=== PATIENT | female | born 1970 | race African-American/Black ===

== ENCOUNTER → 2016-06-12 | Outpatient (CLI) | payer OTHER ==
--- NOTE | ~2016-06-12 | CR58 ---
[facility] A Service of [facility] & [facility] RADIOLOGY TEXT RESULTS PATIENT: GRACIELA CASPER LOCATION: [facility] : [birth year] UNIT #: [id number] AGE: [address]: Sharda Champion APRN SEX: F ORDER DR: [id number] [facility] [address] [place], [place] [address] [id number] MR#: [id number] Acc #: [id number] NAME: GRACIELA CASPER : 1970 SEX: F STUDY DATE/TIME: 06/12/2016 15:17 UNIT: [facility] ROOM: STUDY DESCRIPTION: CR Cervical Spine 2 or 3 Views Attending Physician: Sharda Champion Aprn Referring Physician: Sharda Champion Aprn Ordering Physician: Sharda Champion Aprn Primary Care Physician: Katarzyna Silvestre M.D. MEDICAL IMAGING REPORT This report is preliminary unless electronic signature is present EXAM C-spine 3 views HISTORY Possible pinched nerve in neck, neck pain for 1.5 months. FINDINGS 3 views of the cervical spine demonstrates no fracture, dislocation. Mild degenerative disc changes C6-7 with the anterior and posterior hypertrophic changes and mild broadening of the endplates. Prevertebral soft tissues appear normal. The odontoid C1-2 relationship appear normal. The posterior elements are unremarkable. IMPRESSION Mild C6-7 degenerative disc changes. No acute findings. Dictated by... Susan Finley M.D. THIS IS AN ELECTRONICALLY VERIFIED REPORT Susan Finley M.D. at 06/13/2016 8:42 PM MARY/joanne TD: 06/13/2016 09:10 JOB #: [id number] MEDICAL IMAGING REPORT COPY
== END | disposition home or self-care (01) ==
LOC: CRAD 14:55
DX: M54.2 Cervicalgia (principal); R20.2 Paresthesia of skin; M47.812 Spondylosis without myelopathy or radiculopathy, cervical region
CPT/HCPCS: 72040